=== PATIENT | male | born 1935 | race Caucasian/White ===

== ENCOUNTER 2019-02-08 17:08 | Inpatient (IN) | payer OTHER ==
[~2019-02-08] VITALS: Ht 172.7 cm; Wt 68.0 kg
[2019-02-08 17:25] VITALS: BP_SYST 120
[2019-02-08 18:56] LABS: BASOPHILS % (AUTO) 0.4 % (0.0-2.0); EOSINOPHILS # (AUTO) 0.1 K/uL (0.0-0.4); EOSINOPHILS % (AUTO) 3.4 % (0.0-4.0); HEMOGLOBIN 11.4 g/dL (14.0-18.0); LYMPHOCYTES # (AUTO) 1.4 K/uL (1.0-5.5); LYMPHOCYTES % (AUTO) 33.1 % (20.5-51.5); MEAN CORPUSCULAR HEMOGLOBIN 31 pg (27-31); MEAN CORPUSCULAR HGB CONC 34 % (32-36); MEAN CORPUSCULAR VOLUME 94 fL (79.0-98.0); MONOCYTES # (AUTO) 0.4 K/uL (0.0-1.0); MONOCYTES % (AUTO) 9.9 % (1.7-9.3); NEUTROPHILS # (AUTO) 2.3 K/uL (1.8-7.7); NEUTROPHILS % (AUTO) 53.2 % (40.0-70.0); PLATELET COUNT (AUTO) 213 K/uL (130-430); RED BLOOD CELL COUNT(AUTO) 3.63 MIL/uL (4.2-6.2); RED CELL DISTRIBUTION WIDTH 13.3 % (9.0-15.0); WHITE BLOOD COUNT (AUTO) 4.3 K/uL (4.8-10.8)
[2019-02-08 19:06] LABS: ANION GAP 2 (5-15); CHLORIDE 102 mmol/L (98-107); CREATININE 1.04 mg/dL (0.55-1.30); GLUCOSE 99 mg/dL (70-99); POTASSIUM 3.4 mmol/L (3.5-5.1); SODIUM SERUM 138 mmol/L (136-145); UREA NITROGEN, BLOOD 11 mg/dL (8-21)
[2019-02-08 19:12] LABS: ALANINE AMINOTRANSFERASE 29 U/L (12-78); ASPARTATE AMINOTRANSFERASE 31 U/L (10-37); TOTAL BILIRUBIN 0.7 mg/dL (0.0-1.0)
[2019-02-08 19:13] LABS: ACETAMINOPHEN < 1 ug/mL (1-30); ALCOHOL, BLOOD < 3 mg/dL (<10)
[2019-02-08] MEDS ORDERED: LIP40 PO (19:21)
[2019-02-08] MEDS ORDERED: ASPI-859 PO (19:24)
[2019-02-08] MEDS ORDERED: QUET50TA PO (19:24)
[2019-02-08] MEDS ORDERED: MEMA5TAB PO (19:24)
[2019-02-08] MEDS ORDERED: DONE10TA44 PO (19:24)
[2019-02-08] MEDS ORDERED: SER25 PO (19:24)
[2019-02-08] MEDS ORDERED: ALBUTEROL SULFATE 0.083% 2.5 MG/3 ML VIAL.NEB INH PRN (22:45)
[2019-02-08] MEDS ORDERED: HYDROcodone/ACETAMIN 5-325 MG TAB (NORCO/ VICODIN) PO PRN (22:45)
[2019-02-08] MEDS ORDERED: HYDROcodone/ACETAMIN 10-325 MG TAB PO PRN (22:45)
[2019-02-09 01:33] VITALS: BP_SYST 146
[2019-02-09 05:51] VITALS: BP_SYST 146
[2019-02-09 06:48] LABS: BASOPHILS % (AUTO) 0.6 % (0.0-2.0); EOSINOPHILS # (AUTO) 0.1 K/uL (0.0-0.4); EOSINOPHILS % (AUTO) 3.1 % (0.0-4.0); HEMATOCRIT 33.3 % (36-54); HEMOGLOBIN 11.3 g/dL (14.0-18.0); LYMPHOCYTES # (AUTO) 1.5 K/uL (1.0-5.5); LYMPHOCYTES % (AUTO) 31.6 % (20.5-51.5); MEAN CORPUSCULAR HEMOGLOBIN 32 pg (27-31); MEAN CORPUSCULAR HGB CONC 34 % (32-36); MEAN CORPUSCULAR VOLUME 93 fL (79.0-98.0); MONOCYTES # (AUTO) 0.4 K/uL (0.0-1.0); MONOCYTES % (AUTO) 8.9 % (1.7-9.3); NEUTROPHILS # (AUTO) 2.6 K/uL (1.8-7.7); NEUTROPHILS % (AUTO) 55.8 % (40.0-70.0); PLATELET COUNT (AUTO) 195 K/uL (130-430); RED BLOOD CELL COUNT(AUTO) 3.57 MIL/uL (4.2-6.2); RED CELL DISTRIBUTION WIDTH 13.4 % (9.0-15.0); WHITE BLOOD COUNT (AUTO) 4.6 K/uL (4.8-10.8)
[2019-02-09] MEDS: MEMANTINE HCL 5 MG TABLET PO SCH ×2 (06:50→17:44)
[2019-02-09 06:53] LABS: ALANINE AMINOTRANSFERASE 25 U/L (12-78); ALBUMIN 3.4 g/dL (3.4-4.8); ANION GAP 4 (5-15); ASPARTATE AMINOTRANSFERASE 32 U/L (10-37); CALCIUM 8.6 mg/dL (8.4-11.0); CHLORIDE 102 mmol/L (98-107); CREATININE 1.02 mg/dL (0.55-1.30); GLUCOSE 74 mg/dL (70-99); POTASSIUM 3.5 mmol/L (3.5-5.1); SODIUM SERUM 139 mmol/L (136-145); TOTAL BILIRUBIN 0.9 mg/dL (0.0-1.0); UREA NITROGEN, BLOOD 10 mg/dL (8-21)
[2019-02-09 08:00] VITALS: BP_SYST 129
[2019-02-09] MEDS ORDERED: QUEtiapine FUMARATE 25 MG TABLET PO SCH ×2 (09:00→21:00)
[2019-02-09] MEDS: QUEtiapine FUMARATE 25 MG TABLET PO SCH ×2 (09:35→17:45)
[2019-02-09] MEDS: ASPIRIN 81 MG TABLET(ECOTRIN) PO SCH (09:35)
[2019-02-09] MEDS: LORazepam 2 MG/ML VIAL IVP PRN ×3 (09:37→17:44)
[2019-02-09 12:00] VITALS: BP_SYST 140
[2019-02-09] MEDS: ATORVASTATIN 20 MG TABLET PO SCH (17:44)
[2019-02-09 23:44] VITALS: BP_SYST 142
[2019-02-10] MEDS: DONEPEZIL HCL 5 MG TABLET (ARICEPT) PO SCH ×2 (00:39→21:16)
[2019-02-10] MEDS: QUEtiapine FUMARATE 25 MG TABLET PO SCH ×4 (00:39→21:17)
[2019-02-10 04:00] VITALS: BP_SYST 142
[2019-02-10 08:00] VITALS: BP_SYST 141
[2019-02-10] MEDS: MEMANTINE HCL 5 MG TABLET PO SCH ×2 (09:35→18:40)
[2019-02-10] MEDS: ASPIRIN 81 MG TABLET(ECOTRIN) PO SCH (09:35)
[2019-02-10 12:00] VITALS: BP_SYST 127
[2019-02-10] MEDS: LORazepam 2 MG/ML VIAL IVP PRN (15:27)
[2019-02-10 16:20] VITALS: BP_SYST 135
[2019-02-10] MEDS: ATORVASTATIN 20 MG TABLET PO SCH (18:40)
[2019-02-10 20:00] VITALS: BP_SYST 132
[2019-02-11] VITALS: BP_SYST 130
[2019-02-11 01:06] LABS: FOLATE (FOLIC ACID) 18.8 ng/mL (>3.0)
[2019-02-11 04:00] VITALS: BP_SYST 126
[2019-02-11] MEDS: MEMANTINE HCL 5 MG TABLET PO SCH ×2 (06:38→17:49)
[2019-02-11 08:00] VITALS: BP_SYST 137
[2019-02-11] MEDS: ASPIRIN 81 MG TABLET(ECOTRIN) PO SCH (08:33)
[2019-02-11] MEDS: QUEtiapine FUMARATE 25 MG TABLET PO SCH ×3 (08:33→22:30)
[2019-02-11 12:00] VITALS: BP_SYST 130
[2019-02-11 16:00] VITALS: BP_SYST 125
[2019-02-11] MEDS: ATORVASTATIN 20 MG TABLET PO SCH (17:49)
[2019-02-11 20:00] VITALS: BP_SYST 131
[2019-02-11] MEDS: DONEPEZIL HCL 5 MG TABLET (ARICEPT) PO SCH (22:30)
[2019-02-12] VITALS (7 sets, daily range): BP systolic 105–129
[2019-02-12] MEDS: MEMANTINE HCL 5 MG TABLET PO SCH ×2 (06:25→17:06)
[2019-02-12] MEDS: ASPIRIN 81 MG TABLET(ECOTRIN) PO SCH (09:03)
[2019-02-12] MEDS: QUEtiapine FUMARATE 25 MG TABLET PO SCH ×3 (09:03→21:58)
[2019-02-12] MEDS: ATORVASTATIN 20 MG TABLET PO SCH (17:06)
[2019-02-12] MEDS: DONEPEZIL HCL 5 MG TABLET (ARICEPT) PO SCH (21:58)
[2019-02-13] VITALS: BP_SYST 117
[2019-02-13 04:00] VITALS: BP_SYST 115
[2019-02-13] MEDS: MEMANTINE HCL 5 MG TABLET PO SCH ×2 (06:31→17:05)
[2019-02-13] MEDS: ASPIRIN 81 MG TABLET(ECOTRIN) PO SCH (08:28)
[2019-02-13] MEDS: QUEtiapine FUMARATE 25 MG TABLET PO SCH ×3 (08:28→21:00)
[2019-02-13 13:15] VITALS: BP_SYST 108
[2019-02-13] MEDS: ATORVASTATIN 20 MG TABLET PO SCH (17:06)
[2019-02-13 17:22] VITALS: BP_SYST 114
[2019-02-13 20:00] VITALS: BP_SYST 115
[2019-02-13] MEDS: DONEPEZIL HCL 5 MG TABLET (ARICEPT) PO SCH (21:00)
[2019-02-14] MEDS: MEMANTINE HCL 5 MG TABLET PO SCH ×2 (07:18→18:09)
[2019-02-14] MEDS: QUEtiapine FUMARATE 25 MG TABLET PO SCH ×3 (09:05→22:29)
[2019-02-14] MEDS: ASPIRIN 81 MG TABLET(ECOTRIN) PO SCH (09:05)
[2019-02-14 13:37] VITALS: BP_SYST 15
[2019-02-14] MEDS: ATORVASTATIN 20 MG TABLET PO SCH (18:09)
[2019-02-14] MEDS: DONEPEZIL HCL 5 MG TABLET (ARICEPT) PO SCH (22:29)
[2019-02-15] MEDS: MEMANTINE HCL 5 MG TABLET PO SCH (07:11)
[2019-02-15 08:00] VITALS: BP_SYST 114
[2019-02-15] MEDS: QUEtiapine FUMARATE 25 MG TABLET PO SCH (08:28)
[2019-02-15] MEDS: ASPIRIN 81 MG TABLET(ECOTRIN) PO SCH (08:28)
[2019-02-15 10:56] VITALS: BP_SYST 104
[2019-02-15 13:48] VITALS: BP_SYST 104
== END 2019-02-15 15:40 | disposition home or self-care (01) | DRG 70 ==
LOC: SED 17:08 → SMU 19:41
PROVIDERS: ADMIT Internal Medicine Hospice and Palliative Medicine; ATTEND Internal Medicine Hospice and Palliative Medicine
DX: G93.40 Encephalopathy, unspecified (principal); R40.2343 Coma scale, best motor response, flexion withdrawal, at hospital admission; F03.91 Unspecified dementia, unspecified severity, with behavioral disturbance; D64.9 Anemia, unspecified; E87.6 Hypokalemia; E78.5 Hyperlipidemia, unspecified; I10 Essential (primary) hypertension; Z79.899 Other long term (current) drug therapy; R40.2423 Glasgow coma scale score 9-12, at hospital admission; R40.2353 Coma scale, best motor response, localizes pain, at hospital admission
CPT/HCPCS: 36415; 70450-TC; 70551; 71045; 80053; 82607; 82746; 84443-TC; 85025; 87081; 93005; 97110-GP; 97116-GP; 97530-GP; 99285; G0480; G0481; G0482; J2060

== ENCOUNTER 2019-12-17 14:42 | Emergency (ER) | payer OTHER, MEDICAID, SELFPAY ==
[~2019-12-17] VITALS: Ht 167.6 cm; Wt 74.8 kg
[~2019-12-17 14:42] MED LIST: ASPI-859 PO; DONE10TA44 PO; LIP40 PO; MEMA5TAB PO; QUET50TA PO; SER25 PO
[2019-12-17 14:51] VITALS: BP_SYST 138
[2019-12-17 15:42] LABS: BASOPHILS # (AUTO) 0.1 K/uL (0.0-0.2); EOSINOPHILS # (AUTO) 0.3 K/uL (0.0-0.4); EOSINOPHILS % (AUTO) 4.9 % (0.0-4.0); HEMOGLOBIN 12.5 g/dL (14.0-18.0); LYMPHOCYTES # (AUTO) 1.9 K/uL (1.0-5.5); MEAN CORPUSCULAR HEMOGLOBIN 31 pg (27-31); MEAN CORPUSCULAR HGB CONC 33 % (32-36); MEAN CORPUSCULAR VOLUME 94 fL (79.0-98.0); MONOCYTES # (AUTO) 0.5 K/uL (0.0-1.0); MONOCYTES % (AUTO) 9.1 % (1.7-9.3); NEUTROPHILS # (AUTO) 2.7 K/uL (1.8-7.7); PLATELET COUNT (AUTO) 185 K/uL (130-430); RED BLOOD CELL COUNT(AUTO) 4.06 MIL/uL (4.2-6.2); RED CELL DISTRIBUTION WIDTH 13.9 % (9.0-15.0); WHITE BLOOD COUNT (AUTO) 5.4 K/uL (4.8-10.8)
[2019-12-17 16:00] LABS: CALCIUM 9.2 mg/dL (8.4-11.0); CHLORIDE 103 mmol/L (98-107); CREATININE 1.29 mg/dL (0.55-1.30); GLUCOSE 107 mg/dL (70-99); POTASSIUM 4.1 mmol/L (3.5-5.1); SODIUM SERUM 136 mmol/L (136-145); UREA NITROGEN, BLOOD 15 mg/dL (8-21)
[2019-12-17 16:04] LABS: ALANINE AMINOTRANSFERASE 50 U/L (12-78); ALBUMIN 4.2 g/dL (3.4-4.8); ASPARTATE AMINOTRANSFERASE 32 U/L (10-37); CHOLESTEROL 170 mg/dL (<200); HDL CHOLESTEROL 96 mg/dL (>45); LDL CHOLESTEROL 63 mg/dL (<100); TRIGLYCERIDES 70 mg/dL (30-150)
[2019-12-17 16:14] LABS: ALCOHOL, BLOOD < 3 mg/dL (<10); ANION GAP < 3 (5-15)
[2019-12-17 16:27] LABS: ACETAMINOPHEN < 1 ug/mL (1-30)
[2019-12-17 19:12] LABS: BILIRUBIN,URINE NEGATIVE (NEGATIVE); BLOOD, URINE NEGATIVE (NEGATIVE); CLARITY/URINE CLEAR (CLEAR); COLOR,URINE YELLOW (YELLOW); GLUCOSE,URINE NEGATIVE (NEGATIVE); KETONES,URINE NEGATIVE (NEGATIVE); LEUKOCYTE ESTERASE ,URINE NEGATIVE (NEGATIVE); NITRITE, URINE NEGATIVE (NEGATIVE); PH,URINE 5.5 (5.0-8.0); PROTEIN URINE NEGATIVE (NEGATIVE); UROBILINOGEN,URINE 0.2 (0.2-1.0)
[2019-12-17 19:56] LABS: BARBITURATE, URINE NEGATIVE (NEG <=200); BENZODIAZEPINE, URINE NEGATIVE (NEG <=150); CANNABINOID, URINE NEGATIVE (NEG <=50); COCAINE, URINE NEGATIVE (NEG <=150); METHAMPHETAMINES SCREEN,URINE NEGATIVE (NEG <=500); OPIATE, URINE NEGATIVE (NEG <=100); PHENCYCLIDINE SCREEN,URINE NEGATIVE (NEG <=25); UR TRICYCLIC ANTIDEPRESSANTS NEGATIVE (NEG <=300); URINE AMPHETAMINE NEGATIVE (NEG <=500); URINE METHADONE NEGATIVE (NEG <=200); URINE OXYCODONE SCREEN NEGATIVE (NEG <=100); URINE PROPOXYPHENE SCREEN NEGATIVE (NEG <=300)
[2019-12-17 20:40] VITALS: BP_SYST 111
== END 2019-12-17 20:40 ==
LOC: SED 14:42
DX: F20.9 Schizophrenia, unspecified (principal); Z02.89 Encounter for other administrative examinations; Z79.899 Other long term (current) drug therapy; Z20.828 Contact with and (suspected) exposure to other viral communicable diseases
CPT/HCPCS: 36415; 80053; 80061; 80307; 81003; 83036; 85025; 87081; 87426; 99285; G0480; G0481; G0482